=== PATIENT | male | born 1965 | race Caucasian/White ===

== ENCOUNTER 2020-09-21 19:00 | Observation (INO) ==
[2020-09-21 19:42] LABS: Basophils # 0.1 10*3/uL (0.0-0.2); Basophils % 0.5 % (0.0-0.8); Eosinophils # 0.2 10*3/uL (0.0-0.87); Eosinophils % 1.7 % (0.00-10.9); Hematocrit 45.1 VOL% (42.0-52.0); Hemoglobin 15.2 GM/DL (14.0-18.0); Immature Granulocytes % 0.6 %; Immature Granulocytes Absolute 0.07 #; Lymphocytes % 25.1 % (21.2-54.2); Mean Corpuscular HGB Conc 33.7 GM/DL (32-36); Mean Corpuscular Volume 94.4 FL (87-102); Mean Platelet Volume 9.6 FL (9.6-12.0); Monocytes % 8.4 % (1.7-12.7); Neutrophils % 63.7 % (38.7-73.9); Platelet Count 318 T/CUMM (130-400); Red Blood Count 4.78 MC/CUMM (3.8-5.5); Red Cell Distribution Width 12.6 % (9.3-17.3)
[2020-09-21 19:46] LABS: Alanine Aminotransferase 33 U/L (16-61); Albumin 3.4 G/DL (3.4-5.0); Alkaline Phosphatase 122 U/L (45-117); Aspartate Amino Transferase 16 U/L (0-37); Bilirubin,Total < 0.39 MG/DL (0.2-1.0); Blood Urea Nitrogen 11 MG/DL (7-18); Calcium 8.6 MG/DL (8.5-10.1); Estimated Glom Filtration Rate 130 ML/MIN; Glucose 105 MG/DL (74-106); Osmolality,Calculated 273.7 MOS/KG (273-304); Total Protein 6.9 G/DL (6.4-8.3)
[2020-09-21] MEDS ORDERED: NITROGLYCERIN SL 0.4 MG TABLET SL STA (20:13)
[2020-09-21] MEDS ORDERED: ASPIRIN CHEW 81 MG TABLET PO STA (20:13)
[2020-09-21] MEDS ORDERED: ENOXAPARIN 120 MG/0.8 ML SYRINGE SUBCUT SCH (21:30)
[2020-09-21] MEDS ORDERED: ENOXAPARIN 100 MG/ML SYRINGE SUBCUT ONE (21:32)
[2020-09-21] MEDS ORDERED: NITROGLYCERIN SL 0.4 MG TABLET SL PRN (21:33)
[2020-09-21 21:51] LABS: Barbiturates Screen,Urine Negative (Negative); Benzodiazepines Screen,Urine Negative (Negative); Cannabinoid Screen,Urine Negative (Negative); Opiate Screen,Urine Negative (Negative); Phencyclidine Screen,Urine Negative (Negative)
[2020-09-21 21:55] LABS: Bilirubin,Urine Negative (Negative); Blood, Urine Negative (Negative); Glucose,Urine (UA) Negative (Negative); Ketones,Urine Negative (Negative); Mucus,Urine Occasional /LPF (Occasional); Nitrite,Urine Negative (Negative); Protein,Urine Negative; RBC,Urine 1 /HPF (0-4); Urine Appearance CLEAR (Clear); Urine Color Yellow (Yellow); Urine Specific Gravity 1.013 (1.001-1.035); Urine Urobilinogen < 2.0 EU/DL (0.2-1.0); WBC,Urine <1 /HPF (0-6)
[2020-09-21] MEDS ORDERED: hydrALAZINE 20 MG/1 ML VIAL IV PRN (22:09)
[2020-09-21] MEDS ORDERED: DOCUSATE SODIUM 100 MG CAPSULE PO PRN (22:09)
[2020-09-21] MEDS ORDERED: ONDANSETRON 4 MG/2 ML VIAL IV PRN (22:09)
[2020-09-21] MEDS: carvediloL 3.125 MG TABLET PO SCH (23:00)
[2020-09-22 01:31] LABS: Calcium 8.3 MG/DL (8.5-10.1); Osmolality,Calculated 274.8 MOS/KG (273-304); Risk Ratio 3.78; Thyroid Stimulating Hormone 2.26 uIU/ml (0.358-3.74)
[2020-09-22 01:59] LABS: Basophils # 0.1 10*3/uL (0.0-0.2); Basophils % 0.4 % (0.0-0.8); Eosinophils # 0.2 10*3/uL (0.0-0.87); Eosinophils % 1.8 % (0.00-10.9); Hematocrit 43.4 VOL% (42.0-52.0); Hemoglobin 14.2 GM/DL (14.0-18.0); Immature Granulocytes % 0.4 %; Immature Granulocytes Absolute 0.05 #; Lymphocytes # 3.8 10*3/uL (1.4-4.0); Lymphocytes % 32.3 % (21.2-54.2); Mean Corpuscular HGB Conc 32.7 GM/DL (32-36); Mean Platelet Volume 9.9 FL (9.6-12.0); Monocytes % 4.5 % (1.7-12.7); Neutrophils % 60.6 % (38.7-73.9); Platelet Count 293 T/CUMM (130-400); Red Blood Count 4.52 MC/CUMM (3.8-5.5); Red Cell Distribution Width 12.6 % (9.3-17.3); White Blood Count 11.8 T/CUMM (4-12)
[2020-09-22] MEDS: carvediloL 3.125 MG TABLET PO SCH (08:24)
[2020-09-22 08:48] VITALS: BP 121/74
[2020-09-22] MEDS ORDERED: PANTOPRAZOLE 40 MG TABLET PO SCH (09:00)
[2020-09-22] MEDS ORDERED: ASPIRIN EC 81 MG TABLET PO SCH (09:00)
[2020-09-22] MEDS ORDERED: ROSUVASTATIN 20 MG TABLET PO SCH (21:00)
== END 2020-09-22 11:39 | disposition home or self-care (01) ==
LOC: N.ED 19:00 → N.EDINP 19:00 → N.TELEN 22:11
PROVIDERS: ADMIT Internal Medicine; ATTEND Internal Medicine